=== PATIENT | female | born 1945 | race Two or more races ===

== ENCOUNTER 2024-10-04 06:07 | Inpatient (IN) | payer OTHER, MEDICAID ==
[~2024-10-04] VITALS: Ht 170.2 cm; Wt 61.5 kg
[2024-10-04] VITALS (12 sets, daily range): BP systolic 121–178; BP diastolic 50–72; PULSE 53–80; RESP 14–19; TEMP 97.4–99.3; O2SAT 96–98
[2024-10-04] MEDS: IODIXANOL 320MG/ML 100ML BTL IV ONE ×2 (07:30→10:26)
[2024-10-04] MEDS ORDERED: LIDOCAINE VISCOUS 2% 15ML UD PO ONE (08:00)
[2024-10-04] MEDS: fentaNYL CITRATE 100 MCG/2 ML VL IV ONE (09:35)
[2024-10-04] MEDS: MIDAZOLAM HCL 2MG/2ML 2ml VIAL (1mg/ml) IV ONE (09:37)
[2024-10-04] MEDS: ANGIOMAX 250 MG VIAL IV ONE (10:29)
[2024-10-04] MEDS: HEPARIN SODIUM (PORCINE) 5000 UNITS/ML 1ML VIAL ONE (10:30)
[2024-10-04] MEDS: SODIUM CHL 0.9% 0 ML ONE (10:30)
[2024-10-04] MEDS: LIDOCAINE 2%HCL (LOCAL ANESTH.) INJ 20ML MDV ONE (10:30)
[2024-10-04] MEDS: VERAPAMIL 2.5MG/ML INJ 2ML VIAL IV ONE (10:59)
[2024-10-04] MEDS: MIDAZOLAM HCL 2MG/2ML 2ml VIAL (1mg/ml) ONE (11:00)
--- NOTE | 2024-10-04 11:09 | DVHOP2 ---
Operative Report Operative Report CARDIAC TMD TEACHER PROCEDURE REPORT [place], [place] Date of Service: 10/04/24 [employer] Dynamics Manager Architect: Km Brooke MD PROCEDURES PERFORMED: trans esophageal echocardiogram, conscious sedation <15 mins, doppler assesment complete ENMANUEL, PREOPERATIVE DIAGNOSES: POSTOP DIAGNOSIS: DESCRIPTION OF PROCEDURE: The patient or appropriate family signed informed consent understanding the risks, benefits and alternatives of the procedure, they wished to proceed. The patient was brought to the cardiac oil laboratory analyst [place] the patient was given 15 m l of oral viscous lidocaine. the patient was placed in a left lateral decubitus position with bite block in mouth. NExt conscious sedation was administered per oil laboratory analyst protocol with _2_ mg of versed and _25__ mcg of fentanyl. Next a ENMANUEL probe was advanced to the mid esophagus with ease and multiple planar images obtained. At the completion of the procedure , probe was removed and there were no immediate complications. FINDINGS: Left Ventricle: Normal LV size and function, LVEF estimated at 55% mild to moderate LVH Right Ventricle: NOrmal RV size and function Left atrium: enlarged, Right atrium: mild enlarged Left atrial appendage: no thrombus noted, Aortic valve: trileaflet valve, severel calcific trileaflet valve with restricted motion, trace to mild AI, surface echo shows mean grad of 52mmhg Mitral Valve: structurally normal, mild mitral regurg, no MS Tricuspid Valve: mild tricuspid regurgitaiton, no TS Pulmonic Valve: strucutrally normal, no severe PIor PS Interatrial septum: negative color flow for R to L shunt Ascending aorta: mild diffuse atheromatous disesae noted KM BROOKE MD Oct 04, 2024 11:09
--- NOTE | 2024-10-04 11:16 | DVHOP2 ---
Operative Report Operative Report CARDIAC RN GERIATRIC PROCEDURE REPORT [place], [place] Date of Service: Grain Shoveler: Km Alvarez MD PROCEDURES PERFORMED: Coronary angiogram, conscious sedation administration and supervision, less than 15 minutes; fluoroscopy use and interpretation. PREOPERATIVE DIAGNOSES: severe POSTOP DIAGNOSIS: severe DESCRIPTION OF PROCEDURE: The patient or appropriate family signed informed consent understanding the risks, benefits and alternatives of the procedure, they wished to proceed. The patient was brought to the cardiac ear mold laboratory technician [place] The patient was prepped in a sterile fashion. Sedation was used per cardiac cath protocol. I administered 2 mL of 2% lidocaine to the right wrist. With an antegrade front wall puncture. I cannulated the right radial artery and placed a 6-[place]ugu Glidesheath slender. Next, an intra-arterial spasmolytic was administered. Next, a - 5French [place] catheter and were used for coronary angiogram and LVEDP measurement and pressure pullback. At the completion of procedure, all guides and wires were removed, and there were no immediate complications. 3000 U of IV heparin given. FINDINGS: RCA: Moderate vessel off the right sinus of Valsalva, there is no severe flow limiting stenosis. dominant vessel LEFT MAIN: Moderate size left main, it bifurcates into LAD and circumflex. no severe stenosis. CIRCUMFLEX: Moderate caliber vessel coming off the left main with no flow limiting stenosis. LAD: LAD is a moderate caliber vessel coming of the left main. mid LAD has sequential 30% and 40% stenosis in mid portion. apical LAD has mild diffuse plaque CONCLUSIONS: 1. non critical CAD PLAN: TAVR KM Carballo MD Oct 04, 2024 11:16
--- NOTE | 2024-10-04 13:22 | DVHINCON2 ---
Date of service: Oct 04, 2024 Reason for Consultation Post angiogram medical management while in the hospital per the request of Cardiology History of Present Illness This is a 79-year-old female with a Zosyn headache or disease came to the hospital for elective coronary angiogram and trans esophageal echocardiogram. Patient underwent both procedures showed mild coronary artery disease. Patient is brought into the hospital overnight for observation. Currently she is stable denies any complaints of chest pain or shortness for breath. Past Medical History Coronary artery atherosclerotic vascular disease Past Surgical History None significant Allergies: Uncoded Allergies: NONE (Allergy, Unknown, 10/01/24) Home Meds Active Scripts Aspirin (Aspirin Ec) 81 Mg Tab, 81 MG PO DAILY, #90 TAB Prov:JORGE GORDON MD 10/05/24 Atorvastatin Calcium (ATORVASTATIN CALCIUM) 20 Mg Tab, 20 MG PO HS, #90 TAB Prov:JORGE GORDON MD 10/05/24 Review of Systems No complaints of chest pain or shortness for breath. No fevers chills sweats. No dizziness or lightheadedness. Other review of systems reviewed normal. Vital Signs Vital Signs Date Time Temp Pulse Resp B/P (MAP) Pulse Ox O2 Delivery O2 Flow Rate FiO2 10/04/24 11:39 56 15 136/64 (88) 97 10/04/24 11:07 98.6 98.6 Physical Exam Alert awake oriented x3. Comfortable in bed without distress. HEENT neck supple no JVD. Heart regular rate and rhythm S1-S2. Lungs fair air movement without rales wheezes. Abdomen soft nontender positive bowel sounds. Extremities no edema positive pulses. Assessment Coronary artery atherosclerotic vascular disease Status post coronary angiogram and transesophageal echocardiogram Cardiology recommending observation overnight. We will resume her home medications. Aspirin and statin. Follow the labs. Otherwise continue rest of supportive care and treatment. Follow clinical management per clinical course. Plan discussed with: Patient JORGE GORDON MD Oct 04, 2024 13:22
[2024-10-04] MEDS ORDERED: NITROGLYCERIN 0.4 MG SL TAB SL PRN (13:30)
[2024-10-04] MEDS ORDERED: ONDANSETRON HCL 4 MG/2 ML VIAL IV PRN (13:30)
[2024-10-04] MEDS ORDERED: ACETAMINOPHEN 325 MG TAB PO PRN (13:30)
[2024-10-04] MEDS ORDERED: MORPHINE SULFATE INJ 2 MG/ml SYRG IV PRN (13:30)
[2024-10-04] MEDS: ATORVASTATIN 20 MG TAB PO SCH (21:57)
[2024-10-05 01:00] VITALS: BP 132/66; PULSE 68; RESP 16; TEMP 97.4; O2SAT 95
[2024-10-05 05:00] VITALS: BP 138/67; PULSE 71; RESP 18; TEMP 98.3; O2SAT 95
[2024-10-05 06:58] LABS: Potassium 3.6 mmol/L (3.5-5.1); Sodium 141 mmol/L (136-145)
[2024-10-05 06:59] LABS: Anion Gap 8 (5-15); Calcium 9.1 mg/dL (8.7-10.4); Carbon Dioxide 24 mmol/L (20-31)
[2024-10-05 07:04] LABS: Glucose 101 mg/dL (74-106)
[2024-10-05 07:05] LABS: BUN/Creatinine Ratio 17.9 (10.0-20.0); Blood Urea Nitrogen 15 mg/dL (9-23)
[2024-10-05 07:12] LABS: Basophils # (auto) 0 10 ^3/uL (0-0.2); Basophils % (auto) 0.6 % (0.0-2.0); Eosinophils # (auto) 0.1 10 ^3/uL (0-0.8); Eosinophils % (auto) 0.8 % (0.0-7.0); Hematocrit 42.1 % (36.0-46.0); Hemoglobin 14.6 g/dL (12.2-16.2); Lymphocytes # (auto) 0.9 10 ^3/uL (0.4-5.4); Lymphocytes % (auto) 12.8 % (10.0-50.0); Mean Corpuscular Hemoglobin 31.1 pg (28.0-32.0); Mean Corpuscular Hgb Conc. 34.7 g/dL (32.0-36.0); Mean Corpuscular Volume 89.6 fL (80.0-100.0); Monocytes # (auto) 0.3 10 ^3/uL (0-1.3); Monocytes % (auto) 5.2 % (0.0-12.0); Neutrophils # (auto) 5.4 10 ^3/uL (1.6-8.6); Neutrophils % (auto) 80.6 % (37.0-80.0); Platelet Count (auto) 202 10^3/uL (140-450); Red Cell Distribution Width 14.1 % (11.8-14.3); White Blood Cell 6.7 10^3/uL (4.4-10.8)
[2024-10-05 07:13] LABS: Chloride 109 mmol/L (98-107)
[2024-10-05 08:00] VITALS: PULSE 63
[2024-10-05 08:19] VITALS: PULSE 69; RESP 18; O2SAT 95
[2024-10-05 09:20] VITALS: BP 128/59; PULSE 69; RESP 18; TEMP 97.6; O2SAT 95
[2024-10-05] MEDS: FAMOTIDINE 20 MG TAB PO SCH (09:27)
[2024-10-05] MEDS ORDERED: ASPI81TA28 PO (10:59)
[2024-10-05] MEDS ORDERED: ATOR20TA50 PO (10:59)
[2024-10-05 13:00] VITALS: BP 130/61; PULSE 64; RESP 19; TEMP 98.1; O2SAT 98
--- NOTE | 2024-10-05 13:01 | DVHDS2 ---
Discharge Summary Date of Admission Oct 04, 2024 at 16:40 Date of Discharge: Oct 05, 2024 Labs/Diagnostic Data: Laboratory Results Test 10/05/24 05:28 White Blood Count 6.7 10^3/uL (4.4-10.8) Red Blood Count 4.70 10^6/uL (4.0-5.20) Hemoglobin 14.6 g/dL (12.2-16.2) Hematocrit 42.1 % (36.0-46.0) Mean Corpuscular Volume 89.6 fL (80.0-100.0) Mean Corpuscular Hemoglobin 31.1 pg (28.0-32.0) Mean Corpuscular Hemoglobin Concent 34.7 g/dL (32.0-36.0) Red Cell Distribution Width 14.1 % (11.8-14.3) Platelet Count 202 10^3/uL (140-450) Mean Platelet Volume 7.4 fL (6.9-10.8) Neutrophils (%) (Auto) 80.6 % (37.0-80.0) Lymphocytes (%) (Auto) 12.8 % (10.0-50.0) Monocytes (%) (Auto) 5.2 % (0.0-12.0) Eosinophils (%) (Auto) 0.8 % (0.0-7.0) Basophils (%) (Auto) 0.6 % (0.0-2.0) Neutrophils # (Auto) 5.4 10 ^3/uL (1.6-8.6) Lymphocytes # (Auto) 0.9 10 ^3/uL (0.4-5.4) Monocytes # (Auto) 0.3 10 ^3/uL (0-1.3) Eosinophils # (Auto) 0.1 10 ^3/uL (0-0.8) Basophils # (Auto) 0 10 ^3/uL (0-0.2) Nucleated Red Blood Cells 0.0 % Sodium Level 141 mmol/L (136-145) Potassium Level 3.6 mmol/L (3.5-5.1) Chloride Level 109 mmol/L (98-107) Carbon Dioxide Level 24 mmol/L (20-31) Anion Gap 8 (5-15) Blood Urea Nitrogen 15 mg/dL (9-23) Creatinine 0.84 mg/dL (0.550-1.02) Glomerular Filtration Rate Calc 72 mL/min (>90) BUN/Creatinine Ratio 17.9 (10.0-20.0) Serum Glucose 101 mg/dL (74-106) Calcium Level 9.1 mg/dL (8.7-10.4) Other Laboratory Tests 10/05/24 05:28 Brief Hx & Hospital Course: She is admitted overnight observation telemetry floor. Patient remained chest pain-free. No shortness a breath. Follow up labs today are normal. She is feeling better. I have talked to the patient regarding her transesophageal echo as well as coronary angiogram report. Patient is advised to stay on low-dose aspirin for 30 days as well as continue statin given her mild coronary artery disease. Otherwise clinically stable and she is re-evaluated by bottoming room supervisor today and felt stable to be discharged home. Patient verbalized understanding over hospital diagnosis, treatment she received, discharge medications, discharge instructions and agree with follow-up plan of care as outlined. Operations or Procedures Operative Report Operative Report CARDIAC SAGGER FILLER PROCEDURE REPORT [place], [place] Date of Service: Anodize Machine Operator: Km Brooke MD PROCEDURES PERFORMED: Coronary angiogram, conscious sedation administration and supervision, less than 15 minutes; fluoroscopy use and interpretation. PREOPERATIVE DIAGNOSES: severe POSTOP DIAGNOSIS: severe DESCRIPTION OF PROCEDURE: The patient or appropriate family signed informed consent understanding the risks, benefits and alternatives of the procedure, they wished to proceed. The patient was brought to the cardiac carpenter labor supervisor [place] The patient was prepped in a sterile fashion. Sedation was used per cardiac cath protocol. I administered 2 mL of 2% lidocaine to the right wrist. With an antegrade front wall puncture. I cannulated the right radial artery and placed a 6-[place] Glidesheath slender. Next, an intra-arterial spasmolytic was administered. Next, a - 5French [place] catheter and were used for coronary angiogram and LVEDP measurement and pressure pullback. At the completion of procedure, all guides and wires were removed, and there were no immediate complications. 3000 U of IV heparin given. FINDINGS: RCA: Moderate vessel off the right sinus of Valsalva, there is no severe flow limiting stenosis. dominant vessel LEFT MAIN: Moderate size left main, it bifurcates into LAD and circumflex. no severe stenosis. CIRCUMFLEX: Moderate caliber vessel coming off the left main with no flow limiting stenosis. LAD: LAD is a moderate caliber vessel coming of the left main. mid LAD has sequential 30% and 40% stenosis in mid portion. apical LAD has mild diffuse plaque CONCLUSIONS: 1. non critical CAD PLAN: TAVR eval KM BROOKE MD Oct 04, 2024 11:16 Operative Report Operative Report CARDIAC SAGGER FILLER PROCEDURE REPORT [place], [place] Date of Service: 10/04/24 Anodize Machine Operator: Km Brooke MD PROCEDURES PERFORMED: trans esophageal echocardiogram, conscious sedation <15 mins, doppler assesment complete ENMANUEL, PREOPERATIVE DIAGNOSES: POSTOP DIAGNOSIS: DESCRIPTION OF PROCEDURE: The patient or appropriate family signed informed consent understanding the risks, benefits and alternatives of the procedure, they wished to proceed. The patient was brought to the cardiac carpenter labor supervisor [place] the patient was given 15 ml of oral viscous lidocaine. the patient was placed in a left lateral decubitus position with bite block in mouth. NExt conscious sedation was administered per carpenter labor supervisor protocol with _2_ mg of versed and _25__ mcg of fentanyl. Next a ENMANUEL probe was advanced to the mid esophagus with ease and multiple planar images obtained. At the completion of the procedure , probe was removed and there were no immediate complications. FINDINGS: Left Ventricle: Normal LV size and function, LVEF estimated at 55% mild to moderate LVH Right Ventricle: NOrmal RV size and function Left atrium: enlarged, Right atrium: mild enlarged Left atrial appendage: no thrombus noted, Aortic valve: trileaflet valve, severel calcific trileaflet valve with restricted motion, trace to mild AI, surface echo shows mean grad of 52mmhg Mitral Valve: structurally normal, mild mitral regurg, no MS Tricuspid Valve: mild tricuspid regurgitaiton, no TS Pulmonic Valve: strucutrally normal, no severe PIor PS Interatrial septum: negative color flow for R to L shunt Ascending aorta: mild diffuse atheromatous disesae noted KM BROOKE MD Oct 04, 2024 11:09 Condition at Discharge: Stable Final Diagnosis/Problems List Coronary artery atherosclerotic vascular disease status post coronary angiogram and ENMANUEL Discharge Disposition: Home Discharge Instruct/Medications Diet: Consistent carbohydrate, Cardiac 2g Na,low cholest Activity: No Restrictions, As Tolerated Follow Up/Referral: Your bottoming room supervisor Dr. Brooke after two weeks for coronary artery disease Medications: As prescribed New Medications: Aspirin (Aspirin Ec) 81 Mg Tab 81 MG PO DAILY, #90 TAB Atorvastatin Calcium (Atorvastatin Calcium) 20 Mg Tab 20 MG PO HS, #90 TAB Discharge Statement: "Patient was advised to return to the ER or call 911 if any headaches, dizziness, shortness of breath, chest pain, abdominal pain, bleeding, fevers, or worsening of medical condition. Patient was counseled about treatment plan, medications, possible side effects, patientverbalized understanding. All questions were answered to the best of my ability. This discharge took greater then 30 minutes in planning, reviewing documentation, counseling the patient, and discussing with other team members." ASSESSMENT ASSESSMENT Assessment Coronary artery atherosclerotic vascular disease status post coronary angiogram and ENMANUEL JORGE GORDON MD Oct 05, 2024 13:01
--- NOTE | 2024-10-06 08:32 | ECG ---
[facility] Test Date: 2024-10-04 Test Time: 07:42:50 Pat Name: KRISTIN FARLEY Department: Room: 0216T B Gender: F Cleaning Manager: ESTEPHANIE : 1945 Requested By: KM BROOKE Order Number: [id number] Reading MD: Tyler Ogden Measurements Intervals [address] Rate: 61 P: 48 SC: 150 QRS: 21 QRSD: 88 T: 29 QT: 428 QTc: 430 Interpretive Statements Normal sinus rhythm Nonspecific ST and T wave abnormality Electronically Signed On 10-06-2024 14:40:12 PDT by Tyler Ogden Please click the below link to view image of tracing.
== END 2024-10-05 14:30 | disposition home or self-care (01) | DRG 287 ==
LOC: CATH 06:07 → OVERFLOW 16:40 → TELE-CENTR 20:30
PROVIDERS: ADMIT Hospitalist; ATTEND Internal Medicine
PROC: B211YZZ Fluoroscopy of Multiple Coronary Arteries using Other Contrast (ICD-10-PCS; principal; 2024-10-04)
PROC: B24BZZ4 Ultrasonography of Heart with Aorta, Transesophageal (ICD-10-PCS; 2024-10-04)
PROC: 4A023N7 Measurement of Cardiac Sampling and Pressure, Left Heart, Percutaneous Approach (ICD-10-PCS; 2024-10-04)
DX: I25.10 Atherosclerotic heart disease of native coronary artery without angina pectoris (principal); I08.3 Combined rheumatic disorders of mitral, aortic and tricuspid valves
CPT/HCPCS: 36415; 80048; 85025; 93005; 93312; 93454; 97163; 99152; G0378; J2250; Q9967